=== PATIENT | male | born 1935 | race Caucasian/White ===

== ENCOUNTER 2017-03-14 12:21 | Emergency (ER) | payer MEDICARE, OTHER ==
--- NOTE | 2017-04-15 18:45 | ER ---
ADMIT: 03/14/2017 RM/LOC: ER [facility] MR#: [id number] [facility] [id number] [place] [place] [address] Emergency Room Report SEX: M AGE: 81 : 1935 DATE: 03/14/2017 ADDENDUM: This patient comes to the ER because he cut his right hand. It was caught between a wire and a large machine. He has a 1 cm laceration on the dorsal aspect, right below the MCP joint. Good range of motion. No tendon involvement. I placed 2 interrupted stitches using 4-0 Prolene. Stitches are to be removed in 7 days. Please see my T-sheet. SATINDER Castillo / Demetris Peck MD / eve JOB #: [id number] CC: Demetris Peck MD, Attending Physician Tom Damian MD, Family Physician
== END 2017-03-14 12:55 | disposition home or self-care (01) ==
LOC: ER 12:21
PROC: 0HQFXZZ Repair Right Hand Skin, External Approach (ICD-10-PCS; principal; 2017-03-14)
DX: S61.411A Laceration without foreign body of right hand, initial encounter (principal); I10 Essential (primary) hypertension; Z95.1 Presence of aortocoronary bypass graft; Z85.528 Personal history of other malignant neoplasm of kidney; Z79.82 Long term (current) use of aspirin; Z79.899 Other long term (current) drug therapy; W31.89XA Contact with other specified machinery, initial encounter; Y92.009 Unspecified place in unspecified non-institutional (private) residence as the place of occurrence of the external cause